=== PATIENT | female | born 1935 | race Caucasian/White ===

== ENCOUNTER 2019-07-10 09:48 | Outpatient (CLI) | payer MEDICARE ==
--- NOTE | 2019-07-10 12:30 | ULT ---
BILATERAL LOWER EXTREMITY VENOUS ULTRASOUND: HISTORY: Bilateral lower extremity edema for six months that is worsening. TECHNIQUE: Multiplanar urbano-scale and color Doppler images were obtained in a bilateral lower extremity venous u ltrasound. Spectral analysis of the Doppler waveforms was performed. FINDINGS: The bilateral common femoral veins, profunda femoral veins, superficial femoral veins and popliteal v eins are normal in appearance without visible thrombus. These also demonstrate normal compression, fl ow, and augmentation. The posterior tibial veins and greater saphenous veins are also patent. 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 IMPRESSION: No evidence of deep venous thrombosis. POS: [facility]
== END 2019-07-10 09:49 | disposition home or self-care (01) ==
LOC: NAV ULT 09:48
PROVIDERS: ATTEND Family Medicine
DX: R60.0 Localized edema (principal)
CPT/HCPCS: 93970